=== PATIENT | male | born 1965 | race Asian ===

== ENCOUNTER 2018-10-31 07:06 | Outpatient (CLI) | payer OTHER ==
[2018-10-31] MEDS ORDERED: D5W IV ONE (07:30)
[2018-10-31] MEDS ORDERED: PROCAINAMIDE HCL IV ONE (07:30)
--- NOTE | 2018-10-31 08:33 | CPEKG ---
Test Reason : OPEN Blood Pressure : / mmHG Vent. Rate : 050 BPM Atrial Rate : 050 BPM P-R Int : 186 ms QRS Dur : 113 ms QT Int : 480 ms P-R-T Axes : 050 049 039 degrees QTc Int : 438 ms Sinus rhythm Incomplete right bundle branch block Confirmed by Vicente Garcia ([id number]) on 10/31/2018 8:33:07 AM Referred By: Chip Whitfield Confirmed By:Vicente Garcia
== END 2018-10-31 10:09 | disposition home or self-care (01) ==
LOC: FCP 07:06 → FCATH 10:09
PROVIDERS: ATTEND Internal Medicine Cardiovascular Disease
DX: R94.31 Abnormal electrocardiogram [ECG] [EKG] (principal); E78.00 Pure hypercholesterolemia, unspecified; I25.10 Atherosclerotic heart disease of native coronary artery without angina pectoris; Z82.49 Family history of ischemic heart disease and other diseases of the circulatory system
CPT/HCPCS: J2690

== ENCOUNTER → 2018-11-03 | Outpatient (CLI) | payer OTHER ==
[~2018-11-03] MED LIST: GADOBUTROL 10 ML VIAL IVP ONE
== END ==
LOC: FIMAGING 06:43
PROVIDERS: ATTEND Internal Medicine Cardiovascular Disease
DX: I45.10 Unspecified right bundle-branch block (principal); R93.1 Abnormal findings on diagnostic imaging of heart and coronary circulation; Z82.41 Family history of sudden cardiac death
CPT/HCPCS: A9585